=== PATIENT | male | born 1930 | race Caucasian/White ===

== ENCOUNTER 2017-07-15 17:41 | Observation (INO) ==
--- NOTE | 2017-07-15 18:18 | Emergency Department Note ---
Disposition Clinical Impression: Congestive heart failure, Acute exacerbation of chronic obstructive airways disease Disposition: Admitted As Inpatient Condition: Fair SOB HPI - General Chief Complaint: ED Shortness of Breath/Dyspnea Stated Complaint: SWELLING TO BOTH LEGS Time Seen by Provider: 07/15/17 17:55 Source: patient Mode of arrival: ambulatory Limitations: physical limitation Nursing Notes Reviewed: Yes Vital Signs Reviewed: Yes - History of Present Illness Crease swelling and edema in the legs recently had Lasix DC'd denies any blurred vision double vision loss vision has decreased ability to get about because of swelling and edema in the legs recent hernia surgery concerned that he is having scrotal sac swelling denies any redness or drainage is arty followed up with surgeon for post check Onset (ago): day(s) Context: occurred during exertion Severity: moderate Consistency/Duration: constant Improves with: rest, upright position Worsens with: lying flat, exertion Known history of: congestive heart failure Associated symptoms: Reports: lower extremity pain, polyuria. Denies: chest pain, pain with inspiration, fever, cough, wheezing, sputum production, orthopnea, polydipsia, parasthesias, palpitations, hemoptysis, diaphoresis, nausea/vomiting, syncope, abdominal pain, rash, sense of impending doom Treatment prior to arrival: none - Related Data Home Medications Medication Instructions Recorded Confirmed Aspirin 81 mg PO DAILY 04/28/15 07/15/17 Calcium Carbonate/Vitamin D3 1 each PO DAILY 04/28/15 07/15/17 [Liquid Calcium 600-Vit D3 Sfgl] Cyanocobalamin (Vitamin B-12) 50 mcg PO DAILY 04/28/15 07/15/17 [Vitamin B-12] Folic Acid 1 mg PO DAILY 04/28/15 07/15/17 Spironolactone [Aldactone] 1 tab PO DAILY 06/15/17 07/15/17 predniSONE [Prednisone] 2.5 mg PO DAILY 06/15/17 07/15/17 Previous Rx's Medication Instructions Recorded Ascorbic Acid [Vitamin C] 500 mg PO DAILY #30 tablet 09/26/15 Levothyroxine [Synthroid] 1 tab PO DAILY #30 tablet 12/25/16 HYDROcodone/Acet 7.5/325 mg [[place] 1 tab PO TID PRN #14 tablet 06/15/17 7.5-325 mg] Cefuroxime PO [Ceftin] 500 mg PO Q12HR #6 tablet 07/16/17 Furosemide [Lasix] 60 mg PO DAILY #0 07/16/17 Lactobacillus [Culturelle] 1 each PO BID #6 cap.sprink 07/16/17 Allergies Allergy/AdvReac Type Severity Reaction Status Date / Time Sulfa (Sulfonamide Allergy Hives Verified 07/15/17 17:43 Antibiotics) sulfamethoxazole Allergy Rash Verified 07/15/17 17:43 [From Bactrim] trimethoprim [From Bactrim] Allergy Rash Verified 07/15/17 17:43 Erythromycin Base AdvReac Difficulty Verified 07/15/17 17:43 Breathing Oxytetracycline AdvReac Difficulty Verified 07/15/17 17:43 [From Terramycin] Breathing All systems ED: reviewed and negative except as stated. Review of Systems: As Per HPI Constitutional: Reports: weakness. Denies: fever, chills Eyes: Denies: eye pain, eye discharge ENT ED: Denies: ear pain Cardiovascular: Denies: chest pain, palpitations Respiratory: Denies: cough, dyspnea Gastrointestinal: Denies: abdominal pain, nausea, vomiting Genitourinary: Denies: urgency, dysuria, frequency Musculoskeletal: Denies: back pain, neck pain Integumentary: Reports: other (edema of the legs). Denies: rash, abrasion Neurological: Denies: headache, weakness Psychiatric: Denies: anxiety, depression Endocrine: Denies: fatigue Hematological/Lymphatic: Denies: easy bleeding Allergic/Immunologic: Denies: facial swelling Past Medical History - Past Medical History Attestation: Yes The following information was validated with the patient. Source: patient, old records reviewed, obtained from family, nursing notes reviewed Medical history: Reports: atrial fibrillation, CHF, GERD, renal disease, thyroid disease, valvular heart disease, other Surgical history: Reports: cancer surgery (Excision of melanoma from shoulder), vascular surgery (Mitral valve clipping), other (Tonsillectomy MVP clip) Psychiatric history: Reports: no psych history - Social History Smoking Status: Never smoker Smokeless Tobacco Status: No Alcohol use: Reports: none Drug use: Reports: none Physical Exam - General Limitations: physical limitation General appearance: alert, in no apparent distress - Head Head exam: atraumatic, normocephalic, normal inspection - Eye Eye exam: Present: normal appearance, PERRL, EOMI - ENT ENT exam: normal exam, normal oropharynx, mucous membranes moist - Neck Neck exam: Present: normal inspection, full ROM, trachea midline - Chest Chest inspection: Present: normal inspection, symmetric chest wall rise - Respiratory Respiratory exam: Present: normal lung sounds bilaterally, other (rales in the bases) - Cardiovascular Cardiovascular exam: Present: regular rate, normal rhythm, normal heart sounds - Abdominal Exam Abdominal exam: Present: soft, Non-Tender, normal bowel sounds. Absent: mass, pulsatile mass - Extremities Exam Extremities exam: Present: normal inspection, full ROM, normal capillary refill , pedal edema, other (Bilateral lower extremity edema redness to the knee pitting edema 3-4+). Absent: tenderness, joint swelling, calf tenderness - Back Exam Back exam: Present: normal inspection, full ROM. Absent: muscle spasm - Neurological Exam Neurological exam: Present: alert, oriented X3, CN II-XII intact - Psychiatric Psychiatric exam: Present: normal affect, normal mood - Skin Skin exam: Present: warm, dry, intact, normal color Course Course Narrative: Patient was seen and examined patient was given diuretics will here in the emergency room CT was performed to make sure that he was not developing anasarca as a result patient will be admitted started on antibiotics given diuretics transferred to [facility] patient improved Vital Signs Temperature 98.5 F 07/15/17 17:45 Pulse Rate 83 07/15/17 17:45 Respiratory Rate 18 07/15/17 17:45 Blood Pressure 129/78 07/15/17 17:45 O2 Sat by Pulse Oximetry 92 07/15/17 17:45 Temperature 98 F 07/16/17 14:00 Pulse Rate 81 07/16/17 14:00 Respiratory Rate 17 07/16/17 14:00 Blood Pressure 103/63 07/16/17 14:00 O2 Sat by Pulse Oximetry 96 07/16/17 14:00 Oxygen Delivery Oxygen Delivery Room Air Shortness of Breath/Dyspnea - MDM Narrative Medical decision making narrative: Peripheral edema cellulitis infection within the surgical incision - Differential Diagnosis Likely: congestive heart failure - Medical Records Medical records reviewed: Yes I reviewed the patient's medical records. - Lab Data Lab results reviewed: Yes I reviewed the patient's lab results. Result diagrams: 07/16/17 05:05 07/16/17 05:05 Lab Results 10/07/15/17 07/15/17 Range/Units 18:44 18:44 18:44 WBC 5.3 (4.3-11.1) K/mcL RBC 2.85 L (4.19-5.50) M/mcL Hgb 8.8 L (12.9-16.9) g/dL Hct 27.1 L (37.5-50.1) % MCV 95.1 (83.0-100.0) fL MCH 30.9 (28.0-33.3) pg MCHC 32.5 (31.6-35.5) g/dL RDW 23.3 H (11.5-14.5) % Plt Count 331 (140-400) K/mcL MPV 10.0 (9.4-12.4) fL Immature Gran % 0.6 (0-4) % Seg Neutrophils % 69.7 % Lymphocytes % 15.0 % Monocytes % 11.8 % Eosinophils % 2.3 % Basophils % 0.6 % Neutrophils # 3.7 (1.6-8.9) K/mcL Lymphocytes # 0.8 (0.6-4.6) K/mcL Monocytes # 0.6 (0.0-1.3) K/mcL Eosinophils # 0.1 (0.0-0.6) K/mcL Basophils # 0.0 (0.0-0.2) K/mcL Platelet Estimate Slight increase H (Normal) Large Platelets Present A (Not Present) Hypochromasia Present A (Not Present) Poikilocytosis 1+ A (Not Present) Anisocytosis 3+ A (Not Present) Macrocytosis Present A (Not Present) PT 15.5 H (9.4-12.1) Seconds INR 1.4 APTT 35.9 (26.0-36.0) Seconds Sodium 135 L (136-145) mEq/L Potassium 4.7 H (3.5-4.5) mEq/L Chloride 100 (98-109) mEq/L Carbon Dioxide 25 (19-29) mEq/L BUN 24 (8-26) mg/dL Creatinine 0.82 (0.72-1.25) mg/dL Est GFR ( Amer) > 60 (> 60) Est GFR (Non-Af Amer) > 60 (> 60) BUN/Creatinine Ratio 29 H (6-26) Glucose 103 H (70-99) mg/dL Calculated Osmolality 284 (280-300) Calcium 9.4 (8.6-10.8) mg/dL Total Bilirubin 0.8 (0.2-1.2) mg/dL AST 19 (5-34) Units/L ALT 16 (0-55) Units/L Alkaline Phosphatase 78 (38-126) Units/L B-Natriuretic Peptide (0-100) pg/mL Serum Total Protein 6.8 (6.0-8.3) g/dL Albumin 3.4 L (3.5-5.0) g/dL Globulin 3.4 (2.4-3.5) g/dL Albumin/Globulin Ratio 1.0 L (1.1-2.2) Urine Color (Yellow) Urine Clarity (Clear) Urine pH (5.0-8.0) pH Units Ur Specific [place] (1.010-1.025) Urine Protein (Neg-Trace) mg/dL Urine Glucose (UA) (Normal) mg/dL Urine Ketones (Negative) mg/dL Urine Blood (Negative) Urine Nitrite (Negative) Urine Bilirubin (Negative) Urine Urobilinogen (Normal) mg/dL Ur Leukocyte Esterase (Negative) Ur Culture Indicated? (NO) 07/15/17 07/15/17 Range/Units 18:44 18:55 WBC (4.3-11.1) K/mcL RBC (4.19-5.50) M/mcL Hgb (12.9-16.9) g/dL Hct (37.5-50.1) % MCV (83.0-100.0) fL MCH (28.0-33.3) pg MCHC (31.6-35.5) g/dL RDW (11.5-14.5) % Plt Count (140-400) K/mcL MPV (9.4-12.4) fL Immature Gran % (0-4) % Seg Neutrophils % % Lymphocytes % % Monocytes % % Eosinophils % % Basophils % % Neutrophils # (1.6-8.9) K/mcL Lymphocytes # (0.6-4.6) K/mcL Monocytes # (0.0-1.3) K/mcL Eosinophils # (0.0-0.6) K/mcL Basophils # (0.0-0.2) K/mcL Platelet Estimate (Normal) Large Platelets (Not Present) Hypochromasia (Not Present) Poikilocytosis (Not Present) Anisocytosis (Not Present) Macrocytosis (Not Present) PT (9.4-12.1) Seconds INR APTT (26.0-36.0) Seconds Sodium (136-145) mEq/L Potassium (3.5-4.5) mEq/L Chloride (98-109) mEq/L Carbon Dioxide (19-29) mEq/L BUN (8-26) mg/dL Creatinine (0.72-1.25) mg/dL Est GFR ( Amer) (> 60) Est GFR (Non-Af Amer) (> 60) BUN/Creatinine Ratio (6-26) Glucose (70-99) mg/dL Calculated Osmolality (280-300) Calcium (8.6-10.8) mg/dL Total Bilirubin (0.2-1.2) mg/dL AST (5-34) Units/L ALT (0-55) Units/L Alkaline Phosphatase (38-126) Units/L B-Natriuretic Peptide 303 H (0-100) pg/mL Serum Total Protein (6.0-8.3) g/dL Albumin (3.5-5.0) g/dL Globulin (2.4-3.5) g/dL Albumin/Globulin Ratio (1.1-2.2) Urine Color Yellow (Yellow) Urine Clarity Clear (Clear) Urine pH 7.5 (5.0-8.0) pH Units Ur Specific [place] 1.015 (1.010-1.025) Urine Protein Negative (Neg-Trace) mg/dL Urine Glucose (UA) Normal (Normal) mg/dL Urine Ketones Negative (Negative) mg/dL Urine Blood Negative (Negative) Urine Nitrite Negative (Negative) Urine Bilirubin Negative (Negative) Urine Urobilinogen Normal (Normal) mg/dL Ur Leukocyte Esterase Negative (Negative) Ur Culture Indicated? NO (NO) - Radiology Data Radiology results reviewed: Yes I reviewed the patient's radiology results. ITS Impressions Chest X-Ray 07/15/17 18:32 IMPRESSION: Mild CHF, with mild bibasilar airspace opacity likely reflecting a combination of asymmetric edema and atelectasis. However, underlying pneumonia is not excluded. D/ / 07/15/2017 19:30:50 Ever Rodriguez MD / meera Interpreting Provider: Ever Rodriguez MD Abdomen/Pelvis CT 07/15/17 18:38 IMPRESSION: Postsurgical changes of right inguinal hernia repair. There are inflammatory changes and fluid within the right inguinal canal extending into the right scrotum. Correlation for infectious, inflammatory or ischemic process is recommended. Small bilateral pleural effusions with dependent lower lobe airspace disease, likely atelectasis. Cholelithiasis. D/ / Bryanna Latham Cha, MD / Bryanna Latham Cha, MD Interpreting Provider: Bryanna Latham Cha, MD - EKG Data EKG attestation: Yes I reviewed and interpreted this EKG. Critical Care Time Critical Care Time: No
[2017-07-15 18:55] LABS: Basophils % 0.6 %; Eosinophils # 0.1 K/mcL (0.0-0.6); Eosinophils % 2.3 %; Hematocrit 27.1 % (37.5-50.1); Hemoglobin 8.8 g/dL (12.9-16.9); Immature Granulocytes % 0.6 % (0-4); Lymphocytes # 0.8 K/mcL (0.6-4.6); Mean Corpuscular HGB Conc 32.5 g/dL (31.6-35.5); Mean Corpuscular Hemoglobin 30.9 pg (28.0-33.3); Mean Corpuscular Volume 95.1 fL (83.0-100.0); Monocytes # 0.6 K/mcL (0.0-1.3); Monocytes % 11.8 %; Neutrophils # 3.7 K/mcL (1.6-8.9); Platelet Count 331 K/mcL (140-400); Red Blood Count 2.85 M/mcL (4.19-5.50); Red Cell Distribution Width 23.3 % (11.5-14.5); Segmented Neutrophils % 69.7 %
[2017-07-15 19:05] LABS: INR 1.4; Prothrombin Time 15.5 Seconds (9.4-12.1)
[2017-07-15 19:07] LABS: Activated Partial Thrombo Time 35.9 Seconds (26.0-36.0)
[2017-07-15 19:09] LABS: Bilirubin,Urine Negative (Negative); Blood,Urine Negative (Negative); Clarity,Urine Clear (Clear); Color,Urine Yellow (Yellow); Glucose,Urine (UA) Normal (Normal); Ketones,Urine Negative (Negative); Leukocyte Esterase,Urine Negative (Negative); Nitrite,Urine Negative (Negative); PH,Urine 7.5 pH Units (5.0-8.0); Protein,Urine Negative (Neg-Trace); Specific Gravity,Urine 1.015 (1.010-1.025); Urobilinogen,Urine Normal (Normal)
[2017-07-15 19:13] LABS: Alanine Aminotransferase 16 Units/L (0-55); Albumin 3.4 g/dL (3.5-5.0); Alkaline Phosphatase 78 Units/L (38-126); Aspartate Amino Transferase 19 Units/L (5-34); BUN/Creatinine Ratio 29 (6-26); Bilirubin,Total 0.8 mg/dL (0.2-1.2); Blood Urea Nitrogen 24 mg/dL (8-26); Calcium 9.4 mg/dL (8.6-10.8); Carbon Dioxide 25 mEq/L (19-29); Chloride 100 mEq/L (98-109); Globulin 3.4 g/dL (2.4-3.5); Glucose 103 mg/dL (70-99); Osmolality,Calculated 284 (280-300); Potassium 4.7 mEq/L (3.5-4.5); Sodium 135 mEq/L (136-145); Total Protein 6.8 g/dL (6.0-8.3); eGFR For African Americans > 60 (> 60); eGFR For Non-African Americans > 60 (> 60)
[2017-07-15 19:32] LABS: Large Platelets Present (Not Present); Macrocytosis Present (Not Present); Poikilocytosis 1+ (Not Present)
[2017-07-15 19:34] LABS: Hypochromasia Present (Not Present)
[2017-07-15 19:37] LABS: Anisocytosis 3+ (Not Present)
[2017-07-15] MEDS ORDERED: Furosemide 40 MG/4 ML VIAL IVP ONE (20:01)
[2017-07-15] MEDS ORDERED: Piperacillin/Tazobactam 3.375 GM in D5% in Water (Mini-Bag+) 100 ML IVPB ONE (20:01)
[2017-07-15] MEDS ORDERED: Ondansetron ODT 4 MG TAB.RAPDIS SL PRN (21:04)
[2017-07-15] MEDS ORDERED: Naloxone 0.4 MG/ML INJ IVP PRN (21:04)
[2017-07-15] MEDS ORDERED: *HR* HYDROcodone/Acet 7.5/325 mg TABLET PO PRN (21:04)
[2017-07-16 05:12] LABS: Basophils % 0.6 %; Eosinophils # 0.2 K/mcL (0.0-0.6); Eosinophils % 3.1 %; Hematocrit 27.2 % (37.5-50.1); Hemoglobin 9.1 g/dL (12.9-16.9); Immature Granulocytes % 0.4 % (0-4); Lymphocytes # 1.1 K/mcL (0.6-4.6); Lymphocytes % 16.2 %; Mean Corpuscular HGB Conc 33.5 g/dL (31.6-35.5); Mean Corpuscular Hemoglobin 31.4 pg (28.0-33.3); Mean Corpuscular Volume 93.8 fL (83.0-100.0); Mean Platelet Volume 10.2 fL (9.4-12.4); Monocytes # 0.8 K/mcL (0.0-1.3); Monocytes % 11.2 %; Neutrophils # 4.6 K/mcL (1.6-8.9); Nucleated Red Blood Cells 0.3 /100 WBC (0); Platelet Count 348 K/mcL (140-400); Red Cell Distribution Width 22.9 % (11.5-14.5); Segmented Neutrophils % 68.5 %
[2017-07-16 05:17] LABS: INR 1.4; Prothrombin Time 15.2 Seconds (9.4-12.1)
[2017-07-16 05:20] LABS: Activated Partial Thrombo Time 34.7 Seconds (26.0-36.0)
[2017-07-16 05:30] LABS: BUN/Creatinine Ratio 26 (6-26); Blood Urea Nitrogen 23 mg/dL (8-26); Calcium 9.4 mg/dL (8.6-10.8); Carbon Dioxide 25 mEq/L (19-29); Chloride 99 mEq/L (98-109); Glucose 98 mg/dL (70-99); Osmolality,Calculated 288 (280-300); Potassium 4.1 mEq/L (3.5-4.5); Sodium 137 mEq/L (136-145); eGFR For African Americans > 60 (> 60); eGFR For Non-African Americans > 60 (> 60)
[2017-07-16] MEDS ORDERED: Levothyroxine 25 MCG TABLET PO SCH (06:30)
[2017-07-16] MEDS: *HR* HYDROcodone/Acet 7.5/325 mg TABLET PO PRN ×2 (06:55→12:56)
[2017-07-16] MEDS ORDERED: Bumetanide 1 MG/4 ML VIAL IVP SCH (08:00)
[2017-07-16] MEDS ORDERED: Folic Acid 1 MG TABLET PO SCH (09:00)
[2017-07-16] MEDS ORDERED: Aspirin 81 MG TAB.CHEW PO SCH (09:00)
[2017-07-16] MEDS ORDERED: Ascorbic Acid 500 MG TABLET PO SCH (09:00)
[2017-07-16] MEDS ORDERED: predniSONE 5 MG TABLET PO SCH (09:00)
[2017-07-16] MEDS ORDERED: Spironolactone 25 MG TABLET PO SCH (09:00)
[2017-07-16] MEDS ORDERED: VITAMIN B12 50 MCG PO SCH (09:00)
--- NOTE | 2017-07-16 12:20 | Internal Med History&Physical ---
Date of Encounter: 07/16/17 Time of Encounter: 11:45 Assessment and Plan (1) Edema Current visit: Yes Status: Acute He has been started on IV Lasix through emergency room. Qualifiers: Edema type: unspecified Qualified Code(s): R60.9 - Edema, unspecified (2) Cellulitis Current visit: No Status: Acute He was started on Zosyn through emergency room. Qualifiers: Site of cellulitis: unspecified site Qualified Code(s): L03.90 - Cellulitis , unspecified Internal Medicine - H&P: HPI Chief complaint: Edema Admitted From: Home Plans for Post Hospital Care: Home History of present illness: Mr. Huber is a 87 year old male who came to emergency room stating he has had leg edema present for 3-4 weeks with noticeable worsening over the past 2-3 days. He was evaluated in emergency room and felt to have possible bilateral cellulitis with edema. He was admitted to [facility] floor for ongoing care needs. He reports a diagnosis of heart failure but does not recall details of his most recent echocardiogram done several months ago. He states his doses of Lasix and Aldactone were recently adjusted by his booking supervisor. He has chronic atrial fibrillation. He denies hypertension DVT or pulmonary embolus. He had mitral valve repair by clip procedure April 2016. He states his edema has lessened and he wishes to be discharged home now. Past Med Surg Social Fam HX - Past Medical History Medical history: atrial fibrillation, CHF, GERD, renal disease, thyroid disease , valvular heart disease, other Psychiatric history: no psych history - Past Surgical History Surgical History: cancer surgery, vascular surgery, other - Social History Smoking Status: Never smoker Smokeless Tobacco Status: No Alcohol use: none Drug use: none - Family History Father Living Status: Hx Family Cardiac Disorders: Yes ([place]) Internal Medicine - H&P: Meds Aspirin 81 mg PO DAILY 04/28/15 [History] Calcium Carbonate/Vitamin D3 [Liquid Calcium 600-Vit D3 Sfgl] 1 each PO DAILY [History] Cyanocobalamin (Vitamin B-12) [Vitamin B-12] 50 mcg PO DAILY 04/28/15 [History] Folic Acid 1 mg PO DAILY 04/28/15 [History] Ascorbic Acid [Vitamin C] 500 mg PO DAILY #30 tablet 09/26/15 [Rx] Levothyroxine [Synthroid] 1 tab PO DAILY #30 tablet 12/25/16 [Rx] Furosemide [Lasix] 40 mg PO AD 04/14/17 [History] HYDROcodone/Acet 7.5/325 mg [[place] 7.5-325 mg] 1 tab PO TID PRN #14 tablet 06/15 [Rx] Spironolactone [Aldactone] 1 tab PO DAILY 06/15/17 [History] predniSONE [Prednisone] 2.5 mg PO DAILY 06/15/17 [History] 3 Allergy/AdvReac Type Severity Reaction Status Date / Time Sulfa (Sulfonamide Allergy Hives Verified 07/15/17 17:43 Antibiotics) sulfamethoxazole Allergy Rash Verified 07/15/17 17:43 [From Bactrim] trimethoprim [From Bactrim] Allergy Rash Verified 07/15/17 17:43 Erythromycin Base AdvReac Difficulty Verified 07/15/17 17:43 Breathing Oxytetracycline AdvReac Difficulty Verified 07/15/17 17:43 [From Terramycin] Breathing All Systems PM: A 10-system review of systems was performed and is negative for pertinent findings except as documented above in the HPI. Review of systems: Gen.: His weight has been stable at approximately 70 kg since the August [address] [facility] hospitalization. Cardiovascular: As per history of present illness Respiratory: He is a lifelong nonsmoker and has no known chronic lung disease GI: He was told he had a "gallbladder attack" approximately 1979 and had gallstones visualized on ultrasound. He has not had cholecystectomy. He denies disorders of his liver or exocrine pancreas. : He denies hematuria dysuria or kidney stones Neurologic: He denies large distribution strokes or seizures Endocrine: He has hypothyroidism. He denies diabetes or hyperlipidemia Hematology/oncology: He was diagnosed with myelodysplastic syndrome but has not had bone marrow examination. He has chronic anemia. Denies other internal malignancies. He had a melanoma excised approximately 10 years ago from his left shoulder. It was in situ and did not require further intervention such as chemotherapy or radiation therapy etc. Psychiatric: He denies anxiety depression or other mental health issues Musk skeletal: He has been diagnosed with polymyalgia rheumatica and is on prednisone. He has spinal stenosis and uses a wheeled walker to ambulate. - Constitutional Vitals: Temp Pulse Resp BP Pulse Ox 98.4 F 89 18 121/78 97 07/16/17 06:37 07/16/17 06:37 07/16/17 06:37 07/16/17 06:37 07/16/17 06:37 Exam: Gen.: He is a well-developed well-nourished male lying quietly in bed who appears in no acute distress. HEENT: Head is atraumatic and normocephalic. Eyes: EOMI. There is no scleral icterus. Mouth: Mucosa is moist. Neck: Supple and nontender. There is no thyromegaly or adenopathy noted. Heart: Irregularly irregular without murmurs or gallops Lungs: No wheezes or crackles are heard. Abdomen: Soft and nontender. No masses or guarding are noted. He has a healing scar in the right lower abdominal/inguinal area from recent inguinal hernia repair Extremities: He has 2-3+ edema of the lower legs and feet. The edema extends above the knees also. He has erythema of most of his lower legs with ill- defined borders. He has mild DJD changes of his hands. Neurologic: Mental status: He is talkative and a good historian. Cranial nerves : Smile is symmetric. Forehead wrinkles bilaterally. Tongue protrudes midline. EOMI. Motor: There is no pronator drift. Cerebellar: Finger to nose is intact bilaterally. Skin: Warm and dry Internal Med - H&P Results - Labs CBC & Chem 7: 07/16/17 05:05 07/16/17 05:05 Labs: Short CBC 07/16/17 Range/Units 05:05 WBC 6.7 (4.3-11.1) K/mcL Hgb 9.1 L (12.9-16.9) g/dL Hct 27.2 L (37.5-50.1) % Plt Count 348 (140-400) K/mcL Neutrophils # 4.6 (1.6-8.9) K/mcL BMP 07/16/17 05:05 Sodium 137 Potassium 4.1 Chloride 99 Carbon Dioxide 25 BUN 23 Creatinine 0.89 Glucose 98 Calcium 9.4
--- NOTE | 2017-07-16 14:22 | Discharge Summary ---
Date of Encounter: 07/16/17 Time of Encounter: 11:45 - Discharge Diagnosis (1) Edema Priority: Primary Status: Acute Qualifiers: Edema type: unspecified Qualified Code(s): R60.9 - Edema, unspecified (2) Cellulitis Priority: Secondary Status: Acute Qualifiers: Site of cellulitis: unspecified site Qualified Code(s): L03.90 - Cellulitis , unspecified - Discharge Medications Prescriptions: Cefuroxime PO [Ceftin] 500 mg PO Q12HR #6 tablet Lactobacillus [Culturelle] 1 each PO BID #6 cap.sprink Home Medications: Aspirin 81 mg PO DAILY 04/28/15 [History] Calcium Carbonate/Vitamin D3 [Liquid Calcium 600-Vit D3 Sfgl] 1 each PO DAILY [History] Cyanocobalamin (Vitamin B-12) [Vitamin B-12] 50 mcg PO DAILY 04/28/15 [History] Folic Acid 1 mg PO DAILY 04/28/15 [History] Ascorbic Acid [Vitamin C] 500 mg PO DAILY #30 tablet 09/26/15 [Rx] Levothyroxine [Synthroid] 1 tab PO DAILY #30 tablet 12/25/16 [Rx] HYDROcodone/Acet 7.5/325 mg [[place] 7.5-325 mg] 1 tab PO TID PRN #14 tablet 06/15 [Rx] Spironolactone [Aldactone] 1 tab PO DAILY 06/15/17 [History] predniSONE [Prednisone] 2.5 mg PO DAILY 06/15/17 [History] Cefuroxime PO [Ceftin] 500 mg PO Q12HR #6 tablet 07/16/17 [Rx] Furosemide [Lasix] 60 mg PO DAILY #0 07/16/17 [Rx] Lactobacillus [Culturelle] 1 each PO BID #6 cap.sprink 07/16/17 [Rx] Allergies/Adverse Reactions: 3 Allergy/AdvReac Type Severity Reaction Status Date / Time Sulfa (Sulfonamide Allergy Hives Verified 07/15/17 17:43 Antibiotics) sulfamethoxazole Allergy Rash Verified 07/15/17 17:43 [From Bactrim] trimethoprim [From Bactrim] Allergy Rash Verified 07/15/17 17:43 Erythromycin Base AdvReac Difficulty Verified 07/15/17 17:43 Breathing Oxytetracycline AdvReac Difficulty Verified 07/15/17 17:43 [From Terramycin] Breathing Date of admission: 07/15/17 20:09 Primary care physician: Brayan Warner MD - Patient Status Disposition: Home, Self-Care Condition: Fair Functional capacity at discharge: uses cane/walker Overall status at discharge: patient is progressing back to baseline - Discharge Instructions Follow Up With: Brayan Warner MD [Primary Care Provider] - 1 week - Diet and Activity Activity: resume usual activities as tolerated Diet: advance to your usual diet Hospital course: Mr. Huber is a 87 year old male who came to emergency room stating he has had leg edema present for 3-4 weeks with noticeable worsening over the past 2-3 days. He was evaluated in emergency room and felt to have possible bilateral cellulitis with edema. He was admitted to [facility] for ongoing care needs. Initial orders were written by the emergency room physician. I saw him in July 16 and performed a history physical and discharge. He was given Zosyn in emergency room. When I saw him I felt he likely had stasis dermatitis as the primary cause of the bilateral diffuse erythema rather than cellulitis. He will be continued on Ceftin for 3 additional days for possible cellulitis and questionable pneumonia seen on chest x-ray. He will increase Lasix to 60 mg daily until seen by his PCP. He remained afebrile during his hospital stay. WBC remained normal with no left shift seen on differential. He will be discharged home and follow with his PCP Dr. Warner within 1 week. - Time Spent with Patient Total time spent providing and/or coordinating discharge services: - Constitutional Vitals: Temp Pulse Resp BP Pulse Ox 98.4 F 89 18 121/78 97 07/16/17 06:37 07/16/17 06:37 07/16/17 06:37 07/16/17 06:37 07/16/17 06:37
[2017-07-16 15:45] VITALS: BP 103/63
== END 2017-07-16 16:12 | disposition home or self-care (01) ==
LOC: EMEROOPIK 17:41 → INPPIK 17:41
PROVIDERS: ADMIT Internal Medicine; ATTEND Internal Medicine